=== PATIENT | male | born 1980 | race Caucasian/White ===

== ENCOUNTER → 2021-04-01 10:52 | Outpatient (CLI) | payer BC, SELFPAY ==
--- NOTE | 2021-04-01 11:10 | XR_ITS ---
PROCEDURE: XR CALCANEUS RT MIN 2V CLINICAL INDICATION: RT HEEL PAIN COMPARISON: No exams were available for comparison FINDINGS: No fracture or dislocation. No lytic or blastic change. There is normal mineralization. There is a small calcaneal spur. A small subcortical lucency is present at the tip of the calcaneal spur and could be seen with plantar fasciitis. There is a small Achilles enthesophyte. There is generalized vascular calcification. Mildly prominent os trigonum is present measuring 15 mm. Other findings:None. IMPRESSION: 1. Small calcaneal spur with subchondral lucency which could be seen with plantar fasciitis. 2. Other nonacute findings as described above Dictated by: Simon Love MD 04/01/2021 11:43 Simon Love MD in [place] 04/01/2021 11:43
[2021-04-01 11:33] LABS: Basophils % 0.5 % (0.1-2.0); Eosinophils # 0.2 K/mm3 (0.0-0.4); Eosinophils % 2.4 % (0.1-12.0); Hematocrit 43.9 % (42.0-52.0); Hemoglobin 14.3 g/dL (14.1-18.0); Lymphocytes # 1.3 K/mm3 (0.7-4.5); Mean Corpuscular HGB Conc 32.7 g/dL (31.8-35.4); Mean Corpuscular Hemoglobin 29.1 pg (27.0-31.2); Mean Corpuscular Volume 88.9 fl (80-94); Monocytes # 0.6 K/mm3 (0.1-1.0); Monocytes % 7.1 % (1.7-9.3); Neutrophils # 5.7 K/mm3 (1.8-7.8); Platelet Count 275 K/mm3 (142-424); Red Blood Count 4.94 M/mm3 (4.60-6.20); Red Cell Distribution Width 13.5 % (11.5-17.5); White Blood Count 7.9 K/mm3 (4.8-10.8)
[2021-04-01 12:00] LABS: Alanine Aminotransferase 27 U/L (12-78); Albumin Level 4.3 g/dl (3.5-5.0); Albumin/Globulin Ratio 1.3 (1.1-1.8); Alkaline Phosphatase 78 U/L (38-126); Anion Gap 9.4 mEq/L (5-15); Aspartate Amino Transferase 30 U/L (17-59); Bilirubin,Total 0.7 mg/dl (0.2-1.3); Blood Urea Nitrogen 10 mg/dl (9-20); Calcium 9.1 mg/dl (8.4-10.2); Carbon Dioxide 29 mmol/L (22.0-30.0); Chloride 104 mmol/L (98-107); Chol/HDL Ratio 5.2 (1-3.5); Cholesterol 235 mg/dl (140-200); Estimated Glomerular Filt Rate 83 ml/min (>60); GFR (African American) 100 ML/MIN (>60); Globulin 3.2 g/dL (1.3-3.2); Glucose 98 mg/dl (74-100); HDL Cholesterol 45 mg/dl (40-60); Potassium 4.4 mmoL/L (3.5-5.1); Sodium 138 mmol/L (136-145); Total Protein,Serum 7.5 g/dl (6.3-8.2); Triglycerides 189 mg/dl (30-150); VLDL Cholesterol 38 mg/dL (0-40)
[2021-04-01 12:10] LABS: Direct LDL Cholesterol 146.67 mg/dL (100-129)
== END ==
PROVIDERS: Visit Provider Nurse Practitioner Family
DX: Z00.00 Encounter for general adult medical examination without abnormal findings (principal); M79.671 Pain in right foot
CPT/HCPCS: 36415; 73650; 80053; 80061; 85025

== ENCOUNTER → 2021-05-02 07:40 | Outpatient (CLI) | payer BC, SELFPAY ==
--- NOTE | 2021-05-02 | CA_ITS ---
APPROVED REPORT Exam: Exercise Treadmill Technologist: Maggie Lambert, Ht: 5 ft 10 in Wt: 275 lbs BSA: 2.39 m2 HR: 55 bpm BP: 134/92 mmHg Rhythm: Sinus baylee, otherwise normal Medical History Medical History: Hyperlipidemia Cardiac Risk Factors: Hyperlipidemia Stress Test Details Test: Anson HR Resting HR: 59 bpm Max Heart Rate (APMHR): 180.457532 bpm Max HR Achieved: 149 bpm Target HR (85% APMHR): 153.336245 bpm % of APMHR: 82.78 Recovery HR: 105 bpm BP Resting BP: 140/91 mmHg Max BP: 186/92 mmHg Recovery BP: 184.0/84.0 mmHg ECG Resting ECG: Sinus baylee, otherwise normal. Clinical Exercise duration: 09:31 min Highest Stage Achieved: Exercise capacity: 10.1 METs Stress ECG Conclusion Pt exercised 9:30 on anson protocol. Stage 3 held to completion. No CP noted. Occasional PVC and PAC, rare V couplet. Allowing for some motion artifact, ST response to exercise is within normal. Normal GXT to HR achieved, 81% of PM. Myoview images reported separately. Test Summary Stage 3 . . . . . . . . REST . . . . . . . Standing REST 04:09 0.0 0.0 59 . 140/ 91 . . Stage 1 01:00 10.0 1.7 84 . . . . Stage 1 02:00 10.0 1.7 92 . . . . Stage 1 03:00 10.0 1.7 93 . 180/ 90 . . Stage 2 01:00 12.0 2.5 101 . . . . Stage 2 02:00 12.0 2.5 108 . . . . Stage 2 03:00 12.0 2.5 112 . 186/ 92 . . Stage 3 01:00 14.0 3.4 130 . . . . Stage 3 . . . . . . . Stage held Stage 3 02:00 14.0 3.4 135 . . . . Stage 3 03:00 14.0 3.4 140 . . . . Stage 3 . . . . . . . Stage resumed Stage 3 03:31 14.0 3.4 146 . . . Stop exercise at 09:31 RECOVERY 01:00 0.0 0.0 107 . . . . RECOVERY 02:00 0.0 0.0 93 . 184/ 84 . . RECOVERY 03:00 0.0 0.0 82 . 184/ 84 . . RECOVERY 04:00 0.0 0.0 80 . 141/ 74 . . RECOVERY 05:00 0.0 0.0 79 . 141/ 76 . . RECOVERY 05:20 0.0 0.0 82 . 141/ 76 . . Electronically signed by : Wu Euceda MD 05/02/2021 15:03:05
--- NOTE | 2021-05-02 07:47 | NM_ITS ---
APPROVED REPORT Exam: Nuclear Stress Test Indication: short of breath..fatigue Patient Location: Outpatient Stress Tech: Maggie DILLON Tech:Lyla Kimbrough PATGita RT(R)(N) Ht: 5 ft 10 in Wt: 275 lbs HR: 55 bpm BP: 134/92 mmHg BSA: 2.39 m2 BMI: 39.4 History: short of breath..fatigue Procedure: Patient exercised on Anson protocol 9.30 minutes and sec, resting heart rate 55 bpm, resting blood pressure 134/92 mmHg, with exercise maximum heart rate achived was 146 bpm which is 81 % of the maximum predicted heart rate and blood pressure was 186/92 mmHg. Patient denied any complaint of chest pain. Patient has Good exercise capacity, achieved 10.1 METs of workload on treadmill, the blood pressure response to exercise was Adequate. Electrocardiogram Resting electrocardiogram shows sinus rhythm, with exercise there is less than 1.[address] segment depression noted from the baseline EKG. The EKG portion of the exercise Myoview was nondiagnostic as patient did not achieve the target heart rate. Cardiac Stress and Resting SPECT Images: Cardiac Stress and Resting SPECT images were obtained using technetium 99m Myoview 32.5 mCi stress and 10.51 mCi at rest. Gated SPECT for analysis of segmental wall motion and calculation of the ejection fraction also done. Prone images were also obtained. Cardiac stress and rest SPECT images show uniform myocardial activity without segmental perfusion abnormality, computer derived ejection fraction is 50% with no regional wall motion abnormality, right ventricle is normal size and contractility. Conclusion: 1. The EKG portion of the exercise Myoview was nondiagnostic as patient did not achieve the target heart rate, patient has good exercise capacity achieved 10.1 METs of workload on treadmill, the blood pressure response to exercise was adequate, there was no exercise-induced chest discomfort. 2. No scintigraphic evidence of reversible ischemia seen, computer derived ejection fraction is 50% with no regional wall motion abnormality, right ventricle is normal size and contractility. Electronically signed by : Wu Euceda MD 05/02/2021 16:11:46
== END ==
PROVIDERS: PCP Internal Medicine Adolescent Medicine; Visit Provider Nurse Practitioner Family
DX: R07.9 Chest pain, unspecified (principal)
CPT/HCPCS: 78452; 93017; A9502

== ENCOUNTER 2024-02-14 11:08 | Emergency (ER) | payer BC, SELFPAY ==
[2024-02-14] VITALS (7 sets, daily range): BP systolic 117–155; BP diastolic 78–102; PULSE 47–67; RESP 13–18; TEMP 36.6–36.9; O2SAT 95–100; BMI 41.1; BMI 41.3
[2024-02-14 11:39] LABS: Apearance,Urine Clear (Clear); Bilirubin,Urine Negative (Negative); Blood, Urine Negative (Negative); Color,Urine Yellow (Yellow); Glucose,Urine (UA) Negative (Negative); Ketones,Urine Negative (Negative); Protein,Urine Negative (Negative); UTC Leukocyte Esterase,Urine Negative (Negative); UTC Nitrate,Urine Negative (Negative); Urobilinogen,Urine 0.2 EU/dl (0.2)
--- NOTE | 2024-02-14 11:42 | ED_ITS ---
Discharge Plan Disposition Patient Disposition: Still a Patient Referrals Follow up/Referrals: Zan Way MD [Primary Care Provider] - See instructions [facility] [place] HPI General Stated complaint: left side pain Mode of Arrival: Ambulatory Source of Information: Patient Limitations: No Limitations Time Seen by Provider: 02/14/24 11:42 Description of Symptoms (Recalled from Triage Doc. by RN): Pt states he is left sided flank pain. He rates pain 9/10 and describes it as constant pain that st ays in place and does not radiate. He denies any urinary symptoms. HEENT Symptoms (Recalled from RN notes): No Resp Symptoms (Recalled from RN notes): No Skin Symptoms (Recalled from RN notes): No MS Symptoms (Recalled from RN notes): No Functional Status (Recalled from RN notes): n/a History of Present Illness Provider Complaint: 43 yr old male presents for c/o left sided flank pain. He rates pain 9/10 and describes it as constant pain that stays in place and does not radiate. He denies any urinary symptoms. Related Data Allergies Allergy/AdvReac Type Severity Reaction Status Date / Time No Known Drug Allergies Allergy Verified 02/14/24 11:25 NO KNOWN ALLERGIES - NKA Allergy Mild Uncoded 08/25/17 14:50 Worker's Comp Is this a Worker's Comp case?: No [facility] Disclaimer: The information contained in this section may have been updated after the patient was seen, as this information can be updated by other users. 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) Smoking Status: Never smoker alcohol intake: current alcohol intake frequency: holidays/special occasions o nly substance use type: denies use current occupational status: employed Travel in the last 8 weeks: None ROS Obtained: Yes All systems reviewed & no additional complaints except as documented Constitutional Constitutional: Reports system reviewed and no additional complaints, except as documented Eyes Eyes: Reports system reviewed and no additional complaints, except as documented ENT Ears, Nose, Mouth, and Throat: Reports system reviewed and no additional complaints, except as documented Cardiovascular Cardiovascular: Reports system reviewed and no additional complaints, except as documented Respiratory Respiratory: Reports system reviewed and no additional complaints, except as documented Gastrointestinal Gastrointestingal: Reports system reviewed and no additional complaints, except as documented Genitourinary Male Genitourinary: Reports system reviewed and no additional complaints, except as documented, Reports as per HPI and Reports flank pain Musculoskeletal Musculoskeletal: Reports system reviewed and no additional complaints, except as documented Integumentary/Breasts Skin/Breast: Reports system reviewed and no additional complaints, except as documented Neurologic Neurologic: Reports system reviewed and no additional complaints, except as documented Endocrine Endocrine: Reports system reviewed and no additional complaints, except as documented Hematologic/Lymphatic Henatologic/Lymphatic: Reports system reviewed and no additional complaints, e xcept as documented Allergic/Immunologic Allergic/Immunologic: Reports system reviewed and no additional complaints, except as documented Physical Exam General General appearance: alert and in no apparent distress Head Head exam: atraumatic Respiratory Respiratory exam: Present normal lung sounds bilaterally Cardiovascular Cardiovascular exam: Present regular rate and normal rhythm Abdominal Exam Abdominal exam: Present soft Back Exam Back exam: Present normal inspection; Absent tenderness, CVA tenderness (R) or CVA tenderness (L) Neurological Exam Neurological exam: Present alert and oriented X3 Skin Skin exam: Present warm and intact Medical Decision Making Medical Records Medical records reviewed: Yes I reviewed the patient's medical records. Finesse Inquiry Pt receiving controlled substance: No Finesse was queried for this patient: No Vital Signs: 02/14/24 11:10 Temperature 97.8 F Temperature Source Oral Pulse Rate [Right Radial] 61 Respiratory Rate 18 Blood Pressure [Right Arm] 147/99 H Blood Pressure Mean [Right Arm] 115 Blood Pressure Source [Right Arm] Automatic Cuff Blood Pressure Position [Right Arm] Sitting 02 Sat by Pulse Oximetry 95 Oxygen Delivery Method Room Air Lab Data Lab results reviewed: Yes I reviewed the patient's lab results. Lab Results 02/14/24 11:37: Urine Color Yellow, Urine Appearance Clear, Urine pH 7.0, Ur Specific [place] 1.020, Urine Protein Negative, Urine Glucose (UA) Negative, Urine Ketones Negative, Urine Blood Negative, Urine Nitrate Negative, Urine Bilirubin Negative, Urine Urobilinogen 0.2, Ur Leukocyte Esterase Negative Medical Decision Narrative: report to Dr. Issa sent to ed for eval
--- NOTE | 2024-02-14 11:50 | PC.NURSE ---
PATIENT SENT TO ER PER Brent PADGETT APRN FOR FURTHER EVALUATION. REPORT GIVEN TO DR. TURNER BY Brent PADGETT APRN. PATIENT TRANSPORTED TO ER VIA WHEELCHAIR WITH [facility] STAFF ASSIST. AT BEDSIDE
--- NOTE | 2024-02-14 11:57 | CT_ITS ---
PROCEDURE INFORMATION: Exam: CT Abdomen And Pelvis With Contrast Exam date and time: 02/14/2024 12:40 PM Age: 43 years old Clinical indication: Abdominal pain; Additional info: L flank pain TECHNIQUE: Imaging protocol: Computed tomography of the abdomen and pelvis with contrast. Radiation optimization: All CT scans at this facility use at least one of these dose optimization techniques: automated exposure control; mA and/or kV adjustment per patient size (includes targeted exams where dose is matched to clinical indication); or iterative reconstruction. Contrast material: ISOVUE; Contrast volume: 75 ml; Contrast route: IV; COMPARISON: No relevant prior studies available. FINDINGS: Liver: Fatty liver. Gallbladder and bile ducts: Unremarkable. Pancreas: Unremarkable. Spleen: Unremarkable. Adrenal glands: Unremarkable. Kidneys and ureters: No renal or ureteral stones. No hydronephrosis. Stomach and bowel: Unremarkable. Appendix: No evidence of appendicitis. Intraperitoneal space: No free fluid. No pneumoperitoneum. Vasculature: Unremarkable. Lymph nodes: Unremarkable. Urinary bladder: Unremarkable. Reproductive: Unremarkable. Bones/joints: Bilateral L5 pars defects with grade 1 anterolisthesis of L5 on S1. No evidence of acute osseous abnormality. Soft tissues: Small fat containing umbilical hernia without evidence of acute inflammation. IMPRESSION: 1. No acute findings in the abdomen or pelvis. 2. Fatty liver. 3. Bilateral L5 pars defects with grade 1 anterolisthesis of L5 on S1.
--- NOTE | 2024-02-14 11:59 | HMH.EDGENADL ---
Discharge Plan Disposition Patient Disposition: Home, Self-Care Prescriptions Prescriptions: New methocarbamol 500 mg tablet 1,000 mg PO TID Qty: 18 0RF Referrals Follow up/Referrals: Zan Way MD [Primary Care Provider] - See instructions Activity Restrictions/Add. Instructions Additional Instructions/Restrictions: At this time it was felt you are safe to be discharged home. If new or worsening symptoms please do not hesitate to return the emergency department. If symptoms persist please follow-up with your family doctor as you are able. Please take your medications as prescribed. Clinical Impressions Clinical Impression: Acute flank pain Instructions Patient Instructions: DI for Acute Abdominal Pain Discharge ED Provider: Sanket Issa General Adult HPI General Chief complaint: Abdominal Pain Stated complaint: left side pain Time Seen by Provider: 02/14/24 11:42 Mode of Arrival: Ambulatory Source of Information: Patient Limitations: No Limitations Description of Symptoms (Recalled from ER Triage Doc. by RN): Pt states he is left sided flank pain. He rates pain 9/10 and describes it as constant pain that stays in place and does not radiate. He denies any urinary symptoms. History of Present Illness HPI narrative: Patient is a 43-year-old male with no pertinent past medical history presents emergency department for evaluation of left flank pain. It awoke him out of his sleep at 6 AM this morning, it is persistent, nonmodifiable, difficult for patient to get comfortable. No significant dysuria, last bowel movement Thursday was normal. Associated nausea without vomiting, no chest pain or anterior abdominal pain. No other acute complaints at this time. Related Data Previous Rx's Medication Instructions Recorded methocarbamol 500 mg tablet 1,000 mg (2 x 500 mg) PO TID 02/14/24 Muscle pain and spasm #18 tabs Allergies Allergy/AdvReac Type Severity Reaction Status Date / Time No Known Drug Allergies Allergy Verified 02/14/24 11:25 NO KNOWN ALLERGIES - NKA Allergy Mild Uncoded 08/25/17 14:50 [facility] Disclaimer: The information contained in this section may have been updated after the patient was seen, as this information can be updated by other users. 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 smoker alcohol intake: current alcohol intake frequency: holidays/special occasions only substance use type: denies use current occupational status: employed Travel in the last 8 weeks: None ROS Obtained: Yes Systems reviewed as appropriate & no additional complaints except as documented Physical Exam General General appearance: alert and in no apparent distress Head Head exam: atraumatic and normocephalic Eye Eye exam: Present PERRL and EOMI ENT ENT exam: Present mucous membranes moist Neck Neck exam: Present normal inspection Chest Chest inspection: Present normal inspection and symmetric chest wall rise Respiratory Respiratory exam: Present normal lung sounds bilaterally; Absent respiratory distress Cardiovascular Cardiovascular exam: Present regular rate and normal rhythm Abdominal Exam Abdominal exam: Present soft and other (No CVA tenderness); Absent tenderness Extremities Exam Extremities exam: Present normal inspection Neurological Exam Neurological exam: Present alert Psychiatric Psychiatric exam: Present normal affect Skin Skin exam: Present warm and dry Medical Decision Making Finesse Inquiry Pt receiving controlled substance: No Vital Signs: 02/14/24 11:10 02/14/24 11:57 02/14/24 12:01 Temperature 97.8 F 98.4 F Temperature Source Oral Oral Pulse Rate 67 Pulse Rate [Right Radial] 61 58 L Respiratory Rate 18 13 Blood Pressure 155/102 H Blood Pressure [Right Arm] 147/99 H 155/102 H Blood Pressure Mean [Right Arm] 115 119 Blood Pressure Source [Right Arm] Automatic Cuff Blood Pressure Position [Right Arm] Sitting 02 Sat by Pulse Oximetry 95 95 98 Oxygen Delivery Method Room Air Room Air Room Air 02/14/24 12:31 02/14/24 13:00 Temperature Temperature Source Pulse Rate 58 L 58 L Pulse Rate [Right Radial] Respiratory Rate Blood Pressure 130/85 144/88 H Blood Pressure [Right Arm] Blood Pressure Mean [Right Arm] Blood Pressure Source [Right Arm] Blood Pressure Position [Right Arm] 02 Sat by Pulse Oximetry 96 97 Oxygen Delivery Method Room Air Room Air Lab Data Lab Results 02/14/24 11:14: Urine Color Yellow, Urine Appearance Clear, Urine pH 6.5, Ur Specific [place] 1.010, Urine Protein Negative, Urine Glucose (UA) Negative, Urine Ketones Negative, Urine Blood Negative, Urine Nitrate Negative, Urine Bilirubin Negative, Urine Urobilinogen 0.2, Ur Leukocyte Esterase Negative, Urine RBC Occasional, Urine WBC Occasional, Ur Squamous Epith Cells 3-5, Urine Bacteria Trace, Urine Mucus Trace 02/14/24 11:37: Urine Color Yellow, Urine Appearance Clear, Urine pH 7.0, Ur Specific [place] 1.020, Urine Protein Negative, Urine Glucose (UA) Negative, Urine Ketones Negative, Urine Blood Negative, Urine Nitrate Negative, Urine Bilirubin Negative, Urine Urobilinogen 0.2, Ur Leukocyte Esterase Negative 02/14/24 12:06: WBC 10.4, RBC 5.16, Hgb 15.3, Hct 45.7, MCV 88.6, MCH 29.7, MCHC 33.5, RDW 14.6, Plt Count 331, MPV 8.4, Neut % (Auto) 77.6, Lymph % (Auto) 16.9, Desha % (Auto) 3.9, Eos % (Auto) 0.9, Baso % (Auto) 0.7, Neut # (Auto) 8.1 H, Lymph # (Auto) 1.8, Desha # (Auto) 0.4, Eos # (Auto) 0.1, Baso # (Auto) 0.1, Sodium 134 L, Potassium 4.3, Chloride 101, Carbon Dioxide 26, Anion Gap 11.3, BUN 11, Creatinine 1.10, Estimated Creat Clear 89, Estimated GFR 73, Est GFR ( Amer) 88, Glucose 117 H, Calcium 9.5, Total Bilirubin 0.5, AST 30, ALT 27, Alkaline Phosphatase 77, Total Protein 7.7, Albumin 4.3, Globulin 3.4 H, Albumin/Globulin Ratio 1.3, Lipase 41 02/14/24 12:06 02/14/24 12:06 Orders (Tests/Meds): ED MEDICATIONS Generic Name Dose Route Start Last Admin Trade Name Freq PRN Reason Stop Dose Admin Sodium Chloride 10 ml 02/14/24 12:41 02/14/24 12:44 Sodium Chloride 0.9% 10ml Syr (Rad Only) IV 03/15/24 12:40 10 ml NEEDED PRN Administration Maintain IV Site Discontinued Medications Generic Name Dose Route Start Last Admin Trade Name Freq PRN Reason Stop Dose Admin Acetaminophen 1,000 mg 02/14/24 11:57 02/14/24 12:14 Acetaminophen 1,000mg/100ml Vial IV 02/14/24 11:58 1,000 mg ONCE ONE Administration Lactated Ringer's 1,000 mls @ 999 mls/hr 02/14/24 11:57 02/14/24 12:32 Lactated Ringer's 1000 Ml Bag IV 02/14/24 12:57 999 mls/hr .Q1H1M ONE Administration Iopamidol 75 ml 02/14/24 12:41 02/14/24 12:44 Iopamidol-370 (76%);100ml Bottle IV 02/14/24 12:42 75 ml ONCE ONE Administration Ketorolac Tromethamine 30 mg 02/14/24 11:57 02/14/24 12:18 Ketorolac 30mg/Ml Vial IV 02/14/24 11:58 30 mg ONCE ONE Administration Morphine Sulfate 4 mg 02/14/24 11:57 02/14/24 12:17 Morphine 4mg/Ml Syringe IV 02/14/24 11:58 4 mg ONCE ONE Administration Ondansetron HCl 4 mg 02/14/24 11:57 02/14/24 12:18 Ondansetron 4mg/2ml Vial IV 02/14/24 11:58 4 mg ONCE ONE Administration ORDERS Category Date Time Status CT abdomen pelvis w con Stat Cat Scan 02/14/24 11:57 Completed CBC w/Auto Diff [Complete Blood Count Auto Diff] Stat Lab 02/14/24 12:06 Completed CMP [Comprehensive Metabolic Panel] Stat Lab 02/14/24 12:06 Completed Lipase Stat Lab 02/14/24 12:06 Completed UA [Urinalysis and Microscopic] Stat Lab 02/14/24 11:14 Completed Medical Decision Narrative: In summary patient is a 43-year-old male with past medical history described above who presents emergency department for evaluation of left flank pain. Patient is hemodynamically stable nontoxic-appearing upon arrival, afebrile. I suspect patient has a left ureteral stone however kidney mass, spleen pathology remains on the differential therefore workup will be conducted with hematologic labs, urinalysis, CT abdomen pelvis IV contrast. Initial interventions include crystalloid bolus, IV Tylenol, Toradol, Zofran, morphine.Per chart review it appears he had a stress test in July 2023 initial workup reviewed by me, hematologic labs are nonactionable, initial workup reviewed by me, hematologic labs are nonactionable, no JOEY or critical electrolyte abnormality. Urinalysis interpreted by me and not consistent with significant hematuria or evidence of infection. CT imaging shows no acute findings in the abdomen or pelvis, fatty liver with bilateral L5 pars defect and grade 1 anterolisthesis L5 on S1. No acute osseous abnormality. Upon repeat evaluation patient had near total resolution of pain. Given this patient is appropriate for discharge at this time and leading differential includes lumbago and patient will be discharged with a short course of methocarbamol. Critical Care Critical Care Time Critical Care Time: No
[2024-02-14 12:05] LABS: Microscopic, Urine URINE MICROSCOPIC (MICROSCOPIC)
[2024-02-14 12:07] LABS: Appearance,Urine CLEAR (Clear); Bilirubin,Urine Negative (Negative); Blood, Urine Negative (Negative); Color,Urine YELLOW (Yellow); Glucose,Urine (UA) Negative (Negative); Ketones,Urine Negative (Negative); Leukocyte Esterase,Urine Negative (Negative); Nitrate,Urine Negative (Negative); PH,Urine 6.5 (5.0-8.5); Protein,Urine Negative (Negative); Urobilinogen,Urine 0.2 EU/dl (0.2)
[2024-02-14 12:14] LABS: Basophils # 0.1 K/mm3 (0-0.2); Basophils % 0.7 % (0.1-2.0); Eosinophils # 0.1 K/mm3 (0.0-0.4); Eosinophils % 0.9 % (0.1-12.0); Hematocrit 45.7 % (42.0-52.0); Hemoglobin 15.3 g/dL (14.1-18.0); Lymphocytes # 1.8 K/mm3 (0.7-4.5); Lymphocytes % 16.9 % (10-50); Mean Corpuscular HGB Conc 33.5 g/dL (31.8-35.4); Mean Corpuscular Hemoglobin 29.7 pg (27.0-31.2); Mean Corpuscular Volume 88.6 fl (80-94); Mean Platelet Volume 8.4 fl (7.4-10.4); Monocytes # 0.4 K/mm3 (0.1-1.0); Monocytes % 3.9 % (1.7-9.3); Neutrophils # 8.1 K/mm3 (1.8-7.8); Neutrophils % 77.6 % (37.0-80.0); Platelet Count 331 K/mm3 (142-424); Red Blood Count 5.16 M/mm3 (4.60-6.20); Red Cell Distribution Width 14.6 % (11.5-17.5); White Blood Count 10.4 K/mm3 (4.8-10.8)
[2024-02-14] MEDS: ACETAMINOPHEN 1,000MG/100ML VIAL 1000 MG IV (12:14)
[2024-02-14] MEDS: MORPHINE 4MG/ML SYRINGE 4 MG IV (12:17)
[2024-02-14] MEDS: KETOROLAC 30MG/ML VIAL 30 MG IV (12:18)
[2024-02-14] MEDS: ONDANSETRON 4MG/2ML VIAL 4 MG IV (12:18)
[2024-02-14 12:26] LABS: RBC,Urine Occasional #/hpf (0-3); WBC,Urine Occasional #/hpf (0-3)
[2024-02-14 12:27] LABS: Bacteria,Urine Trace /lpf; Mucus,Urine Trace /lpf
[2024-02-14 12:27] LABS: Chloride 101 mmol/L (98-107); Potassium 4.3 mmoL/L (3.5-5.1); Sodium 134 mmol/L (136-145)
[2024-02-14 12:29] LABS: Blood Urea Nitrogen 11 mg/dl (9-20); Creatinine Clearance Estimated 89 mL/min (50-200); Estimated Glomerular Filt Rate 73 ml/min (>60); GFR (African American) 88 ML/MIN (>60)
[2024-02-14 12:30] LABS: Alanine Aminotransferase 27 U/L (12-78); Albumin Level 4.3 g/dl (3.5-5.0); Albumin/Globulin Ratio 1.3 (1.1-1.8); Alkaline Phosphatase 77 U/L (38-126); Anion Gap 11.3 mEq/L (5-15); Aspartate Amino Transferase 30 U/L (17-59); Bilirubin,Total 0.5 mg/dl (0.2-1.3); Calcium 9.5 mg/dl (8.4-10.2); Carbon Dioxide 26 mmol/L (22.0-30.0); Globulin 3.4 g/dL (1.3-3.2); Glucose 117 mg/dl (74-100); Lipase 41 U/L (23-300); Total Protein,Serum 7.7 g/dl (6.3-8.2)
[2024-02-14] MEDS: LACTATED RINGERS 1000ML 1,000 ML 999 ML IV (12:32)
[2024-02-14] MEDS: SODIUM CHLORIDE 0.9% 10ML SYR (RAD ONLY) 10 ML IV (12:44)
[2024-02-14] MEDS: IOPAMIDOL-370 (76%);100ML BOTTLE 75 ML IV (12:44)
== END 2024-02-14 13:45 | disposition home or self-care (01) ==
LOC: UTC 11:10 → ER 11:52
PROVIDERS: Nurse Practitioner Family; Emergency Provider Emergency Medicine; PCP Internal Medicine Adolescent Medicine
DX: R10.32 Left lower quadrant pain (principal); M54.59 Other low back pain; R11.0 Nausea
CPT/HCPCS: 74177; 80053; 81001; 81003; 83690; 85025; 96361; 96374; 96375; 99285; J0131; J1885; J2270; J2405; J7120; Q9967

== ENCOUNTER 2024-05-21 13:42 | Emergency (ER) | payer BC, SELFPAY ==
[2024-05-21 13:53] VITALS: BP 149/87; PULSE 59; RESP 14; TEMP 36.7; O2SAT 97; BMI 32.1
--- NOTE | 2024-05-21 14:48 | XR_ITS ---
PROCEDURE INFORMATION: Exam: XR Left Foot Exam date and time: 05/21/2024 3:12 PM Age: 44 years old Clinical indication: Pain; Foot; Left; Additional info: Pain, edema TECHNIQUE: Imaging protocol: Radiologic exam of the left foot. Views: 3 or more views. COMPARISON: No relevant prior studies available. FINDINGS: Bones/joints: There is no evidence of acute fracture.There is no evidence of malalignment or dislocation. Soft tissues: Soft tissue swelling over the dorsum of the foot IMPRESSION: There is no evidence of acute fracture.There is no evidence of malalignment or dislocation.
--- NOTE | 2024-05-21 14:50 | ED_ITS ---
<Statement entered by Sienna Grande MD - 05/21/24 22:30> I was consulted by the KELI, and we discussed the complexity of the problems being addressed. I approved the treatment and management plan for this patient's care in the emergency department, thus performing a substantive portion of the medical decision making. Sienna Grande MD, PHUONG, FACEP Discharge Plan Disposition Patient Disposition: Home, Self-Care Condition: Good Prescriptions Prescriptions: New indomethacin 50 mg capsule 50 mg PO TID 5 Days Qty: 15 0RF Rx Instructions: administer with food or milk cephalexin 500 mg capsule 500 mg PO Q6H 10 Days Qty: 40 0RF No Action methocarbamol 500 mg tablet 1,000 mg PO TID Qty: 18 0RF Referrals Follow up/Referrals: Zan Way MD [Primary Care Provider] - See instructions Activity Restrictions/Add. Instructions Additional Instructions/Restrictions: Please return if you develop increased pain, redness or fever. Follow up with your PCP this week for recheck. Clinical Impressions Clinical Impression: Cellulitis Stand Alone Forms Stand Alone Forms: Work/School Release Instructions Patient Instructions: Cellulitis Print Language Print Language: Icelandic Discharge ED Provider: Sienna Grande General Adult HPI <SARAH Goyal - Last Filed: 05/21/24 19:17> General Chief complaint: Extremity Problem,Nontraumatic Stated complaint: left foot pain, no accident Time Seen by Provider: 05/21/24 15:13 Mode of Arrival: Ambulatory Source of Information: Patient Limitations: No Limitations Description of Symptoms (Recalled from ER Triage Doc. by RN): pt c/o L foot pain that is throbbing in nature and a 7/10. pt states he slipped 2wks ago. pt states that he has had pain since. pt did not fall. pt reports taking 400mg ibuprofen around 0700 without any relief. pt reports a hx of plantar fascitits but is unsure which foot. History of Present Illness HPI narrative: Patient presents with left foot pain and edema for 2 weeks. He denies significant trauma, but believes he may have slid his foot the night before the onset of symptoms. He denies calf pain or swelling. Denies CHF history. Denies fever. MD complaint: Left foot pain Onset (ago): week(s) (2) Location: left and lower extremity Severity: moderate Consistency: constant Relieving factors: none Associated symptoms: denies other symptoms Treatments prior to arrival: cold therapy and heat therapy Related Data Previous Rx's ?Medication ?Instructions ?Recorded methocarbamol 500 mg tablet 1,000 mg (2 x 500 mg) PO TID 02/14/24 Muscle pain and spasm #18 tabs cephalexin 500 mg capsule 500 mg PO Q6H 10 days #40 caps 05/21/24 indomethacin 50 mg capsule 50 mg PO TID 5 days #15 caps 05/21/24 Allergies Allergy/AdvReac Type Severity Reaction Status Date / Time No Known Drug Allergies Allergy Other Verified 05/21/24 14:03 [facility] <SARAH Goyal Last Filed: 05/21/24 19:17> [facility] Disclaimer: The information contained in this section may have been updated after the patient was seen, as this information can be updated by other users. 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 , [employer]) Smoking Status: Never smoker alcohol intake: current alcohol intake frequency: holidays/special occasions only substance use type: denies use current occupational status: employed Travel in the last 8 weeks: None <SARAH Goyal Last Filed: 05/21/24 19:17> ROS Obtained: Yes Systems reviewed as appropriate & no additional complaints except as documented Physical Exam <SARAH Goyal Last Filed: 05/21/24 19:17> General General appearance: alert and in no apparent distress Head Head exam: atraumatic and normocephalic Eye Eye exam: Present normal appearance and EOMI Chest Chest inspection: Present symmetric chest wall rise Respiratory Respiratory exam: Present normal lung sounds bilaterally Cardiovascular Cardiovascular exam: Present regular rate and normal rhythm Extremities Exam Extremities exam: Present tenderness (TTP to dorsal lateral foot), normal capillary refill (2+ pedal pulses ) and edema (Significant left foot edema ); Absent calf tenderness Neurological Exam Neurological exam: Present alert and oriented X3 Psychiatric Psychiatric exam: Present normal affect and normal mood Skin Skin exam: Present warm, dry and intact Medical Decision Making <SARAH Goyal Last Filed: 05/21/24 19:17> Finesse Inquiry Pt receiving controlled substance: No Vital Signs: 05/21/24 13:53 05/21/24 16:26 05/21/24 17:27 Temperature 98.1 F 98.0 F Temperature Source Oral Pulse Rate 64 Pulse Rate [Left] 59 L Respiratory Rate 14 13 Blood Pressure 142/90 H 150/86 H Blood Pressure [Right Arm] 149/87 H Blood Pressure Mean [Right Arm] 107 Blood Pressure Source [Right Arm] Automatic Cuff Blood Pressure Position [Right Arm] Sitting 02 Sat by Pulse Oximetry 97 Oxygen Delivery Method Room Air Lab Data Lab Results 05/21/24 16:18: Uric Acid 9.5 H Orders (Tests/Meds): ORDERS Category Date Time Status Foot XR left minimum 3 views [XR foot LT min 3V] Stat Exams 05/21/24 14:48 Completed POCUS Point of Care (ER Only) Stat Exams 05/21/24 16:32 Completed Uric Acid Stat Lab 05/21/24 16:18 Completed Medical Decision Narrative: Foot Xray IMPRESSION: There is no evidence of acute fracture.There is no evidence of malalignment or dislocation. Patient presents with left foot pain and swelling. X-ray is negative. His uric acid is elevated. Bedside ultrasound negative for DVT, no calf pain or tenderness as well. He does have some evidence of cobblestoning on the bedside ultrasound, will start cephalexin for cellulitis. Also started on indomethacin given elevated uric acid. Advised to follow-up with his PCP this week. Return for any increased pain, fever, redness. In summary patient is a 44-year-old male who presents the emergency department for evaluation of left foot pain and swelling. Patient is hemodynamically stable upon arrival, afebrile. Left foot edema and lateral tenderness on exam. Differential diagnosis includes gout, fracture, cellulitis. Initial workup will be conducted with x-ray, uric acid, bedside ultrasound. . Initial workup reviewed by wi uric acid elevated, x-ray negative. Upon repeat evaluation . Given this [patient is appropriate for discharge at this time will be discharged with a prescription for cephalexin and indomethacin. <Sienna Grande MD - Last Filed: 05/21/24 17:07> Vital Signs: 05/21/24 13:53 05/21/24 16:26 05/21/24 17:27 Temperature 98.1 F 98.0 F Temperature Source Oral Pulse Rate 64 Pulse Rate [Left] 59 L Respiratory Rate 14 13 Blood Pressure 142/90 H 150/86 H Blood Pressure [Right Arm] 149/87 H Blood Pressure Mean [Right Arm] 107 Blood Pressure Source [Right Arm] Automatic Cuff Blood Pressure Position [Right Arm] Sitting 02 Sat by Pulse Oximetry 97 Oxygen Delivery Method Room Air Lab Data Lab Results 05/21/24 16:18: Uric Acid 9.5 H Orders (Tests/Meds): ORDERS Category Date Time Status Foot XR left minimum 3 views [XR foot LT min 3V] Stat Exams 05/21/24 14:48 Completed POCUS Point of Care (ER Only) Stat Exams 05/21/24 16:32 Completed Uric Acid Stat Lab 05/21/24 16:18 Completed Procedures <Sienna Grande MD - Last Filed: 05/21/24 17:07> Miscellaneous Procedure Procedure Performed: Structures identified Common femoral veins and popliteal veins bilaterally Findings complete compression of left common femoral veins and left popliteal veins with normal augmentation bilaterally Impression no evidence of left DVT The study was performed by me and I personally interpreted all images and videos based on my clinical judgment these images were adequate and did not necessitate further imaging Limited soft tissue ultrasound Indication: Soft tissue swelling Identified structures: Location: Left foot Findings: No drainable fluid collection however there is soft tissue fluid that is tracking along the soft tissues and cobblestoning of the left foot Impression: Soft tissue edema concerning for possible cellulitis of the left foot Images were saved to permanent archive The study was technically adequate Soft Tissue CPT Codes: CPT Neck: 15145-38 CPT Upper extremity: 54614-67 CPT Axilla: 20721-68 CPT Chest wall: 25868-60 CPT Breast: 13597-24-WX/LT (complete), 52070-58-OZ/LT (limited), CPT Upper Back: 23065-38 CPT Lower Back: 71639-52 CPT Abdominal Wall: 00499-48 CPT Pelvic Wall: 94814-56 CPT Lower Extremity: 47112-22 CPT Other Soft Tissue: 26249-53 This study was performed by me, and I personally interpreted all images/videos. Based on my clinical judgement, these images were adequate and did not necessitate further imaging. Critical Care <SARAH Goyal - Last Filed: 05/21/24 19:17> Critical Care Time Critical Care Time: No
[2024-05-21 16:26] VITALS: BP 142/90
[2024-05-21 16:51] LABS: Uric Acid 9.5 mg/dl (3.5-8.5)
[2024-05-21 17:27] VITALS: BP 150/86; PULSE 64; RESP 13; TEMP 36.7; O2SAT 97
== END 2024-05-21 17:28 | disposition home or self-care (01) ==
PROVIDERS: Physician Assistant; Emergency Provider Student in an Organized Health Care Education/Training Program; PCP Internal Medicine Adolescent Medicine
DX: L03.116 Cellulitis of left lower limb (principal)
CPT/HCPCS: 73630; 84550; 99284

== ENCOUNTER → 2025-02-25 19:59 | Outpatient (CLI) | payer BC, SELFPAY | LOC: SL 20:01 | PROVIDERS: PCP Internal Medicine Adolescent Medicine; Visit Provider Nurse Practitioner Family | DX: G47.33 Obstructive sleep apnea (adult) (pediatric) (principal); I10 Essential (primary) hypertension; E66.9 Obesity, unspecified; G47.36 Sleep related hypoventilation in conditions classified elsewhere; G47.37 Central sleep apnea in conditions classified elsewhere | CPT/HCPCS: 95810 ==